=== PATIENT | female | born 1940 | race Caucasian/White ===

== ENCOUNTER → 2016-03-10 | Outpatient (CLI) | payer OTHER ==
[~2016-03-10] MED LIST: CALCTAB5 PO; LVTUNK; MULT-506 PO
[2016-03-10 12:51] LABS: CREATININE 0.87 mg/dl (0.60-1.20)
[2016-03-11 14:26] LABS: TOTAL PROTEIN 6.7 G/DL (6.2-8.3)
== END | disposition home or self-care (01) ==
LOC: C.LABBFT 08:16
PROVIDERS: ATTEND Internal Medicine
DX: M81.0 Age-related osteoporosis without current pathological fracture (principal)

== ENCOUNTER → 2016-04-09 | Outpatient (CLI) | payer OTHER ==
[2016-04-09 12:27] LABS: CALCIUM 9.4 mg/dl (8.5-10.1); CREATININE 0.82 mg/dl (0.60-1.20)
[2016-04-09 12:34] LABS: CALCIUM URINE 16.2 mg/dl
[2016-04-10 19:48] LABS: ALBUMIN 4.1 G/DL (3.8-4.8); TOTAL PROTEIN 6.9 G/DL (6.2-8.3)
== END | disposition home or self-care (01) ==
LOC: C.LAB1850 10:27
PROVIDERS: ATTEND Internal Medicine Rheumatology
DX: M81.0 Age-related osteoporosis without current pathological fracture (principal); E55.9 Vitamin D deficiency, unspecified; E61.8 Deficiency of other specified nutrient elements

== ENCOUNTER → 2016-10-23 | Outpatient (CLI) | payer OTHER ==
--- NOTE | 2016-10-23 13:57 | MAMMOGRAPHY REPORT ---
BILATERAL DIGITAL SCREENING MAMMOGRAM WITH CAD: 10/23/2016 CLINICAL HISTORY: Routine screening. Patient has no complaints. TECHNIQUE: Current study was also evaluated with a Computer Aided Detection (CAD) system. Bilateral CC and MLO views were obtained. COMPARISON: Comparison is made to exams dated: 10/23/2015 mammogram, 10/20/2014 mammogram, 10/19/2013 m ammogram, 10/14/2012 mammogram, 10/10/2011 mammogram, and 10/04/2010 mammogram - [facility] nter. BREAST COMPOSITION: There are scattered areas of fibroglandular density in both breasts. FINDINGS: No suspicious masses, calcifications, or areas of architectural distortion are noted in ei ther breast. There has been no significant interval change compared to prior exams. IMPRESSION: ACR BI-RADS CATEGORY 1: NEGATIVE There is no mammographic evidence of malignancy. A 1 year screening mammogram is recommended. The pa tient will receive written notification of the results. Approximately 10% of breast cancers are not detected with mammography. A negative mammographic report should not delay biopsy if a clinically suggestive mass is present. Lynsey Sorto M.D. /:10/23/2016 12:12:45 Airport Screener: Elisa ROBISON(Lesley)(Fabi)(ANA), [facility] letter sent: Normal 1/2 BI-RADS Code: ACR BI-RADS Category 1: Negative
== END | disposition home or self-care (01) ==
LOC: C.MAMM 09:49
PROVIDERS: ATTEND Internal Medicine
DX: Z12.31 Encounter for screening mammogram for malignant neoplasm of breast (principal)

== ENCOUNTER → 2017-02-25 | Outpatient (CLI) | payer OTHER ==
[~2017-02-25] MED LIST changes: +ALEN70TA4 PO; +CALC500C70 PO; +GLUC15009 PO; +IBUP200C80 PO; +LEVO100T7 PO; +LORA10CA10 PO
== END | disposition home or self-care (01) ==
LOC: C.PATHSPEC 16:29
PROVIDERS: ATTEND Dermatology
DX: L82.1 Other seborrheic keratosis (principal)

== ENCOUNTER → 2017-03-03 | Outpatient (CLI) | payer OTHER | END | disposition home or self-care (01) | LOC: C.LABBFT 10:08 | PROVIDERS: ATTEND Internal Medicine | DX: M81.0 Age-related osteoporosis without current pathological fracture (principal); E55.9 Vitamin D deficiency, unspecified; E03.9 Hypothyroidism, unspecified ==

== ENCOUNTER → 2017-10-14 | Day surgery (SDC) | payer OTHER ==
[2017-10-01 10:28] VITALS: Ht 154.9 cm; Wt 47.3 kg
[~2017-10-14] VITALS: Ht 154.9 cm; Wt 47.3 kg
[~2017-10-14] MED LIST changes: +500ML BSS 0.3ML EPI 1:1000PF IRRIG ONE; +ACETAMINOPHEN 325 MG TAB PO PRN; +AMVISC PLUS 0.8ML SYRINGE INT OCU ONE; +ATROPINE SULFATE 0.1 MG/ML 5ML SYR IV PRN; +BSS FLUSH ONE; -CALCTAB5 PO; +ENDOCOAT 0.85ML SYRINGE INT OCU ONE; +EpHEDrine SULFATE INJ 50 MG/ML AMP IV PRN; +EpINEphrine INJ 1MG/ML AMP 1 MG/ML AMP ONE; +LACTATED RINGER'S 1000ML 500 ML IV SCH; +LIDOCAINE 4% OP SOLN DROP CHARGE ONE; +LIDOCAINE 4% OP SOLN DROP CHARGE OPL SCH; +LIDOCAINE HCL 1% MPF 2 ML VIAL ONE; -LVTUNK; +MIDAZOLAM HCL 1 MG/ML 2ML VIAL ONE; +MIX: 4ML BSS 1ML EPI 1:1000 PF TOP ONE; +MOXIFLOXACIN OPH SOLN PER DROP CHARGE ONE; +POVIDONE-IODINE OP SOLN 30 ML BTL ONE; +PROPARACAINE 0.5% OP SOLN PER DROP CHARGE OPL SCH; +TOBRAMYCIN/DEXAMETHASONE OPH OINT PER APPLN CHARGE ONE
--- NOTE | 2017-10-14 10:15 | History & Physical Bridge - SC ---
H&P Re-Evaluation Bridge Note: I have examined the patient, reviewed the History & Physical and in the interval since the performance of the History & Physical I have noted the following changes of clinical significance: No changes noted
[2017-10-14] MEDS: PHENYLEPHRINE HCL 2.5% OP SOLN PER DROP CHARGE OPL SCH ×3 (10:21→10:31)
[2017-10-14] MEDS: TROPICAMIDE 1% OP SOLN PER DROP CHARGE OPL SCH ×3 (10:22→10:32)
[2017-10-14] MEDS: CYCLOPENTOLATE HCL 1% OP SOLN PER DROP CHARGE OPL SCH ×3 (10:23→10:33)
[2017-10-14] MEDS: MOXIFLOXACIN OPH SOLN PER DROP CHARGE OPL SCH ×3 (10:24→10:34)
--- NOTE | 2017-10-14 11:20 | [facility] Post Operative Brief Note ---
Immediate Operative Summary Operative Date Oct 14, 2017. Pre-Operative Diagnosis Left eye cataract Post-Operative Diagnosis same as preop Procedure(s) Performed Left Cataract Phacoemulsification With Intraocular Lens Implant Surgeon Dr. Khan Section Plotter Operator Surgeon(s) none Estimated Blood Loss 0ml Findings Consistent with Post-Op Diagnosis Specimens none per surgeon Anesthesia Type MAC Complication(s) none Disposition Accompanied Pt To Recover: no Disposition:
--- NOTE | 2017-10-14 11:21 | [facility] Operative Report ---
Operative Report Date of Service Oct 14, 2017. Operative Report DATE OF OPERATION: 10/14/17 PREOPERATIVE DIAGNOSIS: Senile nuclear cataract, left eye POSTOPERATIVE DIAGNOSIS: Senile nuclear cataract, left eye PROCEDURE PERFORMED: Phacoemulsification with intraocular lens implantation, left eye SURGEON: Dr. Pierre Khan ANESTHESIA: Topical with 1% intracameral lidocaine and monitored anesthesia care COMPLICATIONS: None DESCRIPTION OF PROCEDURE: After positively identifying the patient both verbally and by wristband in the preoperative area, the left eye was marked as the operative eye. The patient was then brought back to the operating room by the anesthesia and nursing staff where they were given a drop of Lidocaine and betadine into the operative eye. They were then sterilely prepped and draped in the standard fashion typical for ophthalmic surgery. Steri-strips were placed along the upper eyelids to keep the lashes back, and a lid speculum was placed into the operative eye. At this point, a documented time out was performed with members of the ophthalmology, nursing, and anesthesia staffs all agreeing upon the correct patient, correct location for surgery, correct procedure, and correct type and power of intraocular lens to be implanted. The microscope was then swung into position. First, a paracentesis wound was made using a sideport blade. Then, in sequence, 1% preservative-free lidocaine followed by Endocoat viscoelastic was injected into the anterior chamber. Next , the main incision was made with a keratome blade in triplanar fashion. A sharp cystotome was introduced into the eye and used to create a tear in the anterior capsule, which was directed into a continuous curvilinear capsulorrhexis using Utrata forceps. Hydrodissection was then performed with BSS on a flat-tip cannula. Next, the phacoemulsification handpiece was introduced into the eye and used to remove the nucleus in a [id number]-alh-acxs fashion. This was done without complication and then the irrigation-aspiration handpiece was introduced into the eye and used to remove all remaining cortical and epinuclear material. Amvisc was then injected into the anterior chamber as well as into the capsular bag and using the lens injector system, an MX60 24.5 D lens, serial number [id number], and expiration date 04/2020 was injected into the capsular bag and rotated into the correct position. Next, the irrigation- aspiration handpiece was used to remove all remaining Amvisc. BSS was used to hydrate the main wound, and then BSS was injected into the paracentesis site to reach physiologic pressure and then the main wound was checked and found to be watertight. The patient was given drops of Vigamox and Tobradex ointment into the operative eye, and then the surrounding area was cleaned and dried. A clear plastic shield was placed over the eye and the patient was then sat up and taken from the operating room by the anesthesia staff having tolerated the procedure well and suffering no complications. DISPOSITION: The patient was returned to the recovery room in stable condition. I attest to the content of the Intraoperative Record and any orders documented therein. Any exceptions are noted below.
--- NOTE | 2017-10-14 11:22 | Discharge Instructions-SurgCtr ---
Discharge Instructions Date of Service Oct 14, 2017. Visit Reason for Visit: Left Cataract Discharge Discharge Diagnosis / Problem: left cataract Discharge Goals Goal(s): Decrease discomfort, Improve function Activity Recommendations Activity Limitations: as noted below Anesthesia . Post Anesthesia Instructions: If you have had General Anesthesia or IV Sedation: * Do not drive today. * Resume driving when surgeon permits. * Do not make important decisions or sign legal documents today. * Call surgeon for: 1. Temperature elevations greater than 101 degrees F. 2. Uncontrollable pain. 3. Excessive bleeding. 4. Persistent nausea and vomiting. 5. Medication intolerance (nausea, vomiting or rash). * For nausea and vomiting use only clear liquids such as: tea, soda, bouillon until nausea subsides, then gradually increase diet as tolerated. * If you have any concerns or questions, call your surgeon's office. If physician is unavailable and it is an emergency, call 911 or go to the nearest emergency room. . Instructions / Follow-Up Instructions / Follow-Up ACTIVITY RECOMMENDATIONS: * Light activities. * You may walk outside, read, watch television. * You may notice redness on the white part of the eye and some blurry vision - this is normal. MEDICATIONS: Resume previous medications unless instructed otherwise by your surgeon. Start all eye drops at 1:30 pm today: * Eye drops (today): Prednisone - one drop in operative eye every 2 hours while awake Ofloxacin - one drop in operative eye every 2 hours while awake Ketorolac - one drop in operative eye daily SPECIAL CARE INSTRUCTIONS: * Tape plastic shield over eye to sleep at night. Call your doctor at with any concerns or problems. FOLLOW UP VISIT: Follow-up with Dr Khan at [place] office as scheduled. Diet Recommendations Home Diet: no limitations Procedures Procedures Performed: Left Cataract Phacoemulsification With Intraocular Lens Implant Pending Studies Studies pending at discharge: no Medical Emergencies . Who to Call and When: Medical Emergencies: If at any time you feel your situation is an emergency, please call 911 immediately. . Non-Emergent Contact Non-Emergency issues call your: Surgeon . . "Provider Documentation" section prepared by Pierre Khan. .
[2017-10-14 11:50] VITALS: BP 145/73; PULSE 74; O2SAT 100
--- NOTE | 2017-10-14 11:54 | Anesthesia Progress Nt - [facility] ---
Anesthesia Post Op Note Date & Time Oct 14, 2017 at 11:54 Vital Signs Pain Intensity: 0 Vital Signs Past 12 Hours Date Time Temp Pulse Resp B/P (MAP) Pulse Ox O2 Delivery O2 Flow Rate FiO2 10/14/17 11:50 74 16 145/73 (97) 100 Room Air 10/14/17 11:22 36.6 66 12 152/83 (106) 100 Room Air 10/14/17 10:07 36.6 72 16 153/79 (103) 100 Room Air Notes Mental Status: alert / awake / arousable, participated in evaluation Pt Amnestic to Procedure: Yes Nausea / Vomiting: adequately controlled Pain: adequately controlled Airway Patency, RR, SpO2: stable & adequate BP & HR: stable & adequate Hydration State: stable & adequate Anesthetic Complications: no major complications apparent
== END | disposition home or self-care (01) ==
LOC: X.SURG 09:45
PROVIDERS: ATTEND Ophthalmology
DX: H25.12 Age-related nuclear cataract, left eye (principal); Z91.012 Allergy to eggs; J45.909 Unspecified asthma, uncomplicated; Z79.899 Other long term (current) drug therapy

== ENCOUNTER 2019-08-10 12:31 | Observation (INO) ==
[2019-08-10 13:46] LABS: Basophils # (auto) 0.01 K/uL (0-0.2); Basophils % (auto) 0.1 %; Hematocrit (blood only) 39.9 % (37-47); Hemoglobin 12.9 g/dL (12.0-16.0); Immature Granulocytes # (auto) 0.01 K/uL (0.00-0.02); Immature Granulocytes % (auto) 0.1 %; Mean Corpuscular Hemoglobin 28.4 pg (25-34); Mean Corpuscular Hgb Conc 32.3 g/dL (32-36); Mean Corpuscular Volume 87.7 fL (80-100); Mean Platelet Volume 10.3 fL (7.4-10.4); Monocytes # (auto) 0.33 K/uL (0.11-0.59); Monocytes % (auto) 3.3 %; Neutrophils % (auto) 88.5 %; Platelet Count 268 K/uL (130-400); RDW Coefficient of Variation 13.7 % (11.5-14.5); Red Blood Count 4.55 M/uL (4.2-5.4); White Blood Count 10.05 K/uL (4.8-10.8)
[2019-08-10] MEDS ORDERED: SODIUM CHLORIDE 0.9% 1000ML 500 ML IV ONE (13:52)
[2019-08-10] MEDS ORDERED: ONDANSETRON INJ 2 MG/ML 2 ML VIAL IV STA (13:52)
[2019-08-10 13:55] LABS: Appearance Urine Cloudy (Clear); Bacteria Urine Automated Negative (Negative); Bilirubin Urine Negative (Negative); Blood Urine 3+ (Negative); Color Urine Yellow; Epithelial Cell Urine Auto >30 /lpf (0-5); Glucose Urine UA Negative (Negative); Ketones Urine 3+ (Negative); Leukocyte Esterase Urine Negative (Negative); Nitrite Urine Negative (Negative); Protein Urine 1+ (Negative); RBC Urine Automated >30 /hpf (0-4); Specific Gravity Urine 1.026 (1.000-1.030); Urobilinogen Urine Negative (Negative)
--- NOTE | 2019-08-10 13:57 | Emergency Department Note ---
Impression & Plan Acute left flank pain, Renal colic, Hematuria, Nausea ED Provider Note NAME: MITCHELL GILLILAND AGE: 79 SEX: F : 1940 ARRIVES VIA: Ambulance INFORMANT: [Patient] ED PROVIDER(S): [Julio C Hagan MD] CHIEF COMPLAINT: Left flank pain HISTORY OF PRESENT ILLNESS: The patient is a 79-year-old female who presents with around 12 hours of left flank discomfort. The pain was severe at a 7 or 8 but now is around a 2. She thinks taking 3 Motrin helped. Patient has had nausea with the pain. There has been no pain radiation. The pain was sharp and she just could not get comfortable until the Motrin seemed to kick in. Position change did not help. There have been no urinary complaints. No vomiting, no cough or congestion or shortness of breath. She has not had diarrhea. No history of a kidney stone. No fall or trauma or issues with her back previously. REVIEW OF SYSTEMS: See HPI for pertinent positives and negatives. A total of ten systems were reviewed and were otherwise negative. PMHx/PSHx: See Below SOCIAL HISTORY: See Below. PHYSICAL EXAM: GENERAL: Patient is in no acute distress. HEENT: No acute trauma, normocephalic atraumatic, mucous membranes moist, no nasal congestion, no scleral icterus. NECK: No stridor, no adenopathy, no meningismus, trachea is midline. LUNGS: Clear to auscultation bilaterally, no wheeze, no rhonchi, breath sounds equal. HEART: Without murmurs gallops or rubs, regular rate and rhythm. Back: No flank discomfort with percussion, no rash, no pain with palpation or certain movements. ABDOMEN: Soft, nontender, bowel sounds positive, no hernias, no peritonitis. EXTREMITIES: No cyanosis or edema, full range of motion of all the joints without pain or difficulty, no signs for acute trauma. NEUROLOGIC: Oriented x 3, no acute motor or sensory deficits, no focal weakness. SKIN: No rash, no jaundice, no diaphoresis. DIFFERENTIAL DIAGNOSIS: Musculoskeletal, disc herniation, fracture, metastatic disease, cord compression, discitis, sciatica, cauda equina, infection, aortic disease, renal colic, gastrointestinal, as well as other pathologies. EMERGENCY DEPARTMENT COURSE/PROCEDURES: Continuous Cardiac Monitoring: An order was placed for continuous cardiac monitoring. The monitor shows a rate of 56 with sinus bradycardia. MEDICAL DECISION MAKING: There is no leukocytosis or concerning anemia. No significant electrolyte abnormality or kidney failure. No worrisome liver enzyme elevation. No evidence for pancreatitis. Urinalysis did show hematuria, no evidence for infection. Chest film did not show any obvious pneumonia, there was no pneumothorax. No evidence for free air. Abdominal and pelvis CT shows a very large proximal left ureteral stone with hydronephrosis. The patient received IV saline, IV Zofran, IV Toradol and IV Tylenol. She still was having some pain, but the pain was improved with the listed medications. Given the size of the stone, given the patient's age, I do think a hospital stay is warranted. I suspect she will require some type of urologic intervention. I did speak to the patient, I spoke with case management. The on-call hospitalist was consulted. Past Med/Surg History Medical History Allergic rhinitis (Chronic) Depression with anxiety (Chronic) Hypertension (Chronic) Hypothyroidism (Chronic) Lichen sclerosus et atrophicus (Chronic) Osteoporosis (Chronic) Primary writing tremor (Chronic) Seborrheic keratosis (Chronic) Surgical History S/P colonoscopy S/P knee surgery S/P tubal ligation Family History Family/Other Anemia Heart disease Brother Asthma Hyperparathyroidism Grandmother (Maternal) Breast cancer Denies family history of Ovarian cancer Colorectal cancer Social History Preferred Language: Spanish Communication Ability: Effective Visual Impairment: No Limitations Hearing Ability: Normal Body Bumper Required: No marital status: Current Living Situation: Spouse current occupational status: retired Feels Safe at Home: Yes Smoking Status: Former smoker Hx Alcohol Use: No Hx Substance Use: No Physical Activity Frequency: Other Physical Activity Frequency Comment: Regularly Sexual Activity: has been sexually active, but not for at least 12 months Allergies Allergies Allergy/AdvReac Type Severity Reaction Status Date / Time egg Allergy Unknown . Verified 08/10/19 16:21 pollen extracts Allergy Verified 08/10/19 16:21 trazodone Allergy Verified 08/10/19 16:21 Home Meds Home Medications Medication Instructions Recorded Confirmed calcium carbonate [Calcium 600] 600 mg PO QAM 08/10/19 08/10/19 cholecalciferol (vitamin D3) 2,000 units PO QPM 08/10/19 08/10/19 denosumab [Prolia] 60 mg SQ Q6M 08/10/19 08/10/19 docusate sodium [Colace] 200 mg PO QPM 08/10/19 08/10/19 levothyroxine 100 mcg PO QAM 08/10/19 08/10/19 loratadine 10 mg PO QAM PRN 08/10/19 08/10/19 losartan 50 mg PO QAM 08/10/19 08/10/19 multivitamin 1 tab PO QAM 08/10/19 08/10/19 Results & Data (ED) Vital Signs Vital Signs - 24 hr 08/10/19 12:36 08/10/19 12:37 08/10/19 12:43 Temperature 37.0 C Temperature Source Oral Pulse Rate 77 67 57 L Pulse Rate from SpO2 Sensor 203 H 201 H Respiratory Rate 17 17 15 Blood Pressure 170/72 H 170/72 H Blood Pressure Mean 85 104 Pulse Oximetry 94 92 Oxygen Delivery Method Room Air Sepsis Recent Fever Within 48 Hours No Sepsis Action Taken by Nursing No Action Required 08/10/19 12:50 08/10/19 13:00 08/10/19 13:01 Temperature Temperature Source Pulse Rate 59 L 60 51 L Pulse Rate from SpO2 Sensor 173 H 101 H 181 H Respiratory Rate 11 L 16 14 Blood Pressure 132/66 Blood Pressure Mean 84 Pulse Oximetry Oxygen Delivery Method Sepsis Recent Fever Within 48 Hours Sepsis Action Taken by Nursing 08/10/19 13:10 08/10/19 13:20 08/10/19 13:30 Temperature Temperature Source Pulse Rate 52 L 52 L 65 Pulse Rate from SpO2 Sensor 184 H 176 H Respiratory Rate 15 17 16 Blood Pressure 153/55 H Blood Pressure Mean 98 Pulse Oximetry 94 Oxygen Delivery Method Sepsis Recent Fever Within 48 Hours Sepsis Action Taken by Nursing 08/10/19 13:31 08/10/19 13:40 08/10/19 13:41 Temperature Temperature Source Pulse Rate 57 L 50 L Pulse Rate from SpO2 Sensor 203 H 50 L Respiratory Rate 23 16 Blood Pressure Blood Pressure Mean Pulse Oximetry 98 94 Oxygen Delivery Method Room Air Sepsis Recent Fever Within 48 Hours Sepsis Action Taken by Nursing 08/10/19 13:50 08/10/19 14:00 08/10/19 14:01 Temperature Temperature Source Pulse Rate 63 50 L 53 L Pulse Rate from SpO2 Sensor Respiratory Rate 18 15 18 Blood Pressure 144/70 H Blood Pressure Mean 109 Pulse Oximetry Oxygen Delivery Method Sepsis Recent Fever Within 48 Hours Sepsis Action Taken by Nursing 08/10/19 14:10 08/10/19 14:32 08/10/19 14:40 Temperature Temperature Source Pulse Rate 64 60 55 L Pulse Rate from SpO2 Sensor 55 L Respiratory Rate 22 20 12 Blood Pressure Blood Pressure Mean Pulse Oximetry 97 Oxygen Delivery Method Sepsis Recent Fever Within 48 Hours Sepsis Action Taken by Nursing 08/10/19 14:50 08/10/19 15:00 08/10/19 15:01 Temperature Temperature Source Pulse Rate 76 66 54 L Pulse Rate from SpO2 Sensor 202 H Respiratory Rate 17 14 12 Blood Pressure 147/64 H Blood Pressure Mean 84 Pulse Oximetry 90 Oxygen Delivery Method Sepsis Recent Fever Within 48 Hours Sepsis Action Taken by Nursing 08/10/19 15:10 08/10/19 15:20 08/10/19 15:30 Temperature Temperature Source Pulse Rate 54 L 56 L 64 Pulse Rate from SpO2 Sensor 186 H 187 H Respiratory Rate 12 13 21 Blood Pressure 127/85 Blood Pressure Mean 89 Pulse Oximetry Oxygen Delivery Method Sepsis Recent Fever Within 48 Hours Sepsis Action Taken by Nursing 08/10/19 15:40 08/10/19 15:50 08/10/19 16:00 Temperature Temperature Source Pulse Rate 56 L 53 L 56 L Pulse Rate from SpO2 Sensor Respiratory Rate 14 12 14 Blood Pressure 147/65 H Blood Pressure Mean 114 Pulse Oximetry 94 Oxygen Delivery Method Room Air Sepsis Recent Fever Within 48 Hours Sepsis Action Taken by Nursing 08/10/19 16:01 08/10/19 16:10 08/10/19 16:20 Temperature Temperature Source Pulse Rate 52 L 53 L 59 L Pulse Rate from SpO2 Sensor Respiratory Rate 14 14 15 Blood Pressure Blood Pressure Mean Pulse Oximetry Oxygen Delivery Method Sepsis Recent Fever Within 48 Hours Sepsis Action Taken by Nursing 08/10/19 16:30 08/10/19 16:40 08/10/19 16:50 Temperature Temperature Source Pulse Rate 60 64 48 L Pulse Rate from SpO2 Sensor Respiratory Rate 16 20 12 Blood Pressure 129/70 Blood Pressure Mean 88 Pulse Oximetry Oxygen Delivery Method Sepsis Recent Fever Within 48 Hours Sepsis Action Taken by [facility] Medications Current Medication List: was personally reviewed by me Laboratory Data Attestation: I reviewed the patient's lab results. Result diagrams: 08/10/19 13:35 08/10/19 13:35 Lab Results 08/10/19 08/10/19 08/10/19 Range/Units 13:35 13:35 13:35 WBC 10.05 (4.8-10.8) K/uL RBC 4.55 (4.2-5.4) M/uL Hgb 12.9 (12.0-16.0) g/dL Hct 39.9 (37-47) % MCV 87.7 (80-100) fL MCH 28.4 (25-34) pg MCHC 32.3 (32-36) g/dL RDW Std Deviation 44.0 (36.4-46.3) fL RDW Coeff of [place] 13.7 (11.5-14.5) % Plt Count 268 (130-400) K/uL MPV 10.3 (7.4-10.4) fL Immature Gran % (Auto) 0.1 % Neut % (Auto) 88.5 % Lymph % (Auto) 8.0 % [place] % (Auto) 3.3 % Eos % (Auto) 0.0 % Baso % (Auto) 0.1 % Immature Gran # (Auto) 0.01 (0.00-0.02) K/uL Neut # (Auto) 8.90 H (1.4-6.5) K/uL Lymph # (Auto) 0.80 L (1.2-3.4) K/uL [place] # (Auto) 0.33 (0.11-0.59) K/uL Eos # (Auto) 0.00 (0-0.5) K/uL Baso # (Auto) 0.01 (0-0.2) K/uL Sodium 140 (136-145) mmol/L Potassium 4.2 (3.5-5.1) mmol/L Chloride 107 (98-107) mmol/L Carbon Dioxide 25 (21-32) mmol/L Anion Gap 8.0 (3-11) BUN 30 H (7-18) mg/dl Creatinine 1.04 (0.6-1.2) mg/dl Est Cr Clr Drug Dosing 34.2 ml/min Est GFR ( Amer) 60.0 Est GFR (Non-Af Amer) 51.8 BUN/Creatinine Ratio 29.2 H (10-20) Glucose 116 H (70-99) mg/dl Calcium 9.0 (8.5-10.1) mg/dl Total Bilirubin 0.4 (0.2-1) mg/dl AST 16 (15-37) U/L ALT 23 (12-78) U/L Alkaline Phosphatase 43 L (45-117) U/L Total Protein 7.6 (6.4-8.2) gm/dl Albumin 4.1 (3.4-5.0) gm/dl Globulin 3.5 (2.5-4.0) gm/dl Albumin/Globulin Ratio 1.2 (0.9-2) Lipase 70 L (73-393) U/L Urine Color Yellow Urine Appearance Cloudy A (Clear) Urine pH 5.0 (4.5-7.5) Ur Specific [place] 1.026 (1.000-1.030) Urine Protein 1+ H (Negative) Urine Glucose (UA) Negative (Negative) Urine Ketones 3+ H (Negative) Urine Blood 3+ H (Negative) Urine Nitrite Negative (Negative) Urine Bilirubin Negative (Negative) Urine Urobilinogen Negative (Negative) Ur Leukocyte Esterase Negative (Negative) Urine WBC (Auto) 5-10 H (0-5) /hpf Urine RBC (Auto) >30 H (0-4) /hpf U Hyaline Cast (Auto) 1-5 (0-5) /lpf U Epithel Cells (Auto) >30 H (0-5) /lpf Urine Bacteria (Auto) Negative (Negative) Administered Medications Discontinued Medications Acetaminophen (Ofirmev) 1,000 mg IV ONCE STA Stop: 08/10/19 15:14 Last Admin: 08/10/19 15:30 Dose: 1,000 mg Documented by: [id number] Sodium Chloride (Nss 1000ml) 500 mls @ 999 mls/hr IV .Q31M ONE Stop: 08/10/19 14:22 Last Infusion: 08/10/19 14:51 Dose: 0 mls/hr Documented by: [id number] Admin: 08/10/19 14:00 Dose: 999 mls/hr Documented by: [id number] Ketorolac Tromethamine (Toradol) 15 mg IV NOW ONE Stop: 08/10/19 15:14 Last Admin: 08/10/19 15:30 Dose: 15 mg Documented by: [id number] Morphine Sulfate (Morphine Sulfate) Confirm Administered Dose 2 mg .ROUTE .STK- MED ONE Stop: 08/10/19 19:13 Last Admin: 08/10/19 19:15 Dose: 2 mg Documented by: [id number] Ondansetron HCl (Zofran) 4 mg IV NOW STA Stop: 08/10/19 13:53 Last Admin: 08/10/19 14:00 Dose: 4 mg Documented by: [id number] Ondansetron HCl (Zofran) Confirm Administered Dose 4 mg .ROUTE .STK-MED ONE Stop: 08/10/19 19:13 Last Admin: 08/10/19 19:15 Dose: 4 mg Documented by: [id number] Imaging Data Radiologist's Impression: XR chest 1V portable CLINICAL HISTORY: left flank pain COMPARISON STUDY: No previous studies for comparison. FINDINGS: The heart is mildly enlarged. There is no failure. There is no lobar consolidation. There are increased basilar markings statistically atelectatic. No large pleural effusions are visualized[ IMPRESSION: 1. Mild cardiomegaly 2. Prominent basilar markings, statistically atelectatic CT SCAN OF THE ABDOMEN AND PELVIS WITHOUT CONTRAST CLINICAL HISTORY: left flank pain COMPARISON STUDY: No previous studies for comparison. TECHNIQUE: CT scan of the abdomen and pelvis was performed from the lung bases to the proximal femurs. Images are reviewed in the axial, sagittal, and coronal planes. IV contrast was not administered for this examination. A dose lowering technique was utilized adhering to the principles of ALARA. CT DOSE: 384.94 mGycm FINDINGS: Lower chest: There are mild basilar atelectatic changes. Liver: The unenhanced liver is normal in size, contour, and attenuation. There is no intrahepatic biliary ductal dilatation. Gallbladder: Unremarkable. Spleen: Normal in size and attenuation. Pancreas: Unremarkable. Adrenal glands: Unremarkable. Kidneys: There are multiple bilateral renal calculi. There is a 15 mm right renal hypodensity, likely representing a cyst. There is mild left-sided hydronephrosis and hydroureter. There is a 10 x 5 x 4 proximal left ureteral calculus at the inferior L4 level. Bowel: There are no transition zones indicate bowel obstruction. There is extensive colonic diverticulosis. There are no acute peridiverticular inflammatory changes. There are no findings to indicate acute appendicitis. Peritoneum: There is no intraperitoneal free air or abdominal ascites. There are small fat-containing umbilical hernia. There is a 1 cm soft tissue nodule within the central mesentery. This is of quite low density and likely represents a cyst or fat-containing lesion. This is likely benign Vasculature: The abdominal aorta is normal in course and caliber. Adenopathy: None. Pelvic viscera: There is a 4 cm calcified uterine fibroid. There are calcifications in the left posterior bladder base. While likely representing calculi, a calcified bladder lesion cannot be excluded Skeletal structures: No destructive osseous lesions are seen. IMPRESSION: 1. 10 x 5 x 4 mm proximal left ureteral calculus at the inferior L4 level with secondary obstructive changes 2. Bilateral nephrolithiasis 3. Calcifications at the left posterior bladder base. While likely representing calculi, a calcified bladder lesion cannot be excluded 4. No evidence of bowel obstruction. No evidence of free air. Blood Pressure Blood Pressure Findings: Elevated blood pressure Blood Pressure Disposition: further management by hospitalist Discharge Plan Visit Data *Final* Discharge Date/Time: 08/10/19 17:22 Chief Complaint: Back Injury/Pain ED Provider: Julio C Hagan Discharge Problem: Acute left flank pain, Renal colic, Hematuria, Nausea Patient Disposition: Admitted As Inpatient Condition: Good Discharge Instructions Interventions: ED Discharge Assessment Last Done: 08/10/19 17:22 Discharge Problem: Hematuria Qualifiers: Hematuria type: other microscopic Qualified Code(s): R31.29 - Other microscopic hematuria
[2019-08-10 14:03] LABS: Albumin Level 4.1 gm/dl (3.4-5.0); BUN Creatinine Ratio 29.2 (10-20); Creatinine Clr Calc Pharmacy 34.2 ml/min; Est GFR (Non-African American) 51.8; Potassium 4.2 mmol/L (3.5-5.1)
[2019-08-10 14:06] LABS: Albumin Globulin Ratio 1.2 (0.9-2); Bilirubin,Total 0.4 mg/dl (0.2-1); Globulin 3.5 gm/dl (2.5-4.0); Total Protein 7.6 gm/dl (6.4-8.2)
--- NOTE | 2019-08-10 14:16 | XRay Report ---
XR chest 1V portable CLINICAL HISTORY: left flank pain COMPARISON STUDY: No previous studies for comparison. FINDINGS: The heart is mildly enlarged. There is no failure. There is no lobar consolidation. There a re increased basilar markings statistically atelectatic. No large pleural effusions are visualized[ IMPRESSION: 1. Mild cardiomegaly 2. Prominent basilar markings, statistically atelectatic ACT 112: Negative or not required by law. Electronically signed by: Palmer Caban M.D. 08/10/2019 2:15 PM
--- NOTE | 2019-08-10 14:52 | CT Scan Report ---
CT SCAN OF THE ABDOMEN AND PELVIS WITHOUT CONTRAST CLINICAL HISTORY: left flank pain COMPARISON STUDY: No previous studies for comparison. TECHNIQUE: CT scan of the abdomen and pelvis was performed from the lung bases to the proximal femurs . Images are reviewed in the axial, sagittal, and coronal planes. IV contrast was not administered fo r this examination. A dose lowering technique was utilized adhering to the principles of ALARA. CT DOSE: 384.94 mGycm FINDINGS: Lower chest: There are mild basilar atelectatic changes. Liver: The unenhanced liver is normal in size, contour, and attenuation. There is no intrahepatic kulwinder iary ductal dilatation. Gallbladder: Unremarkable. Spleen: Normal in size and attenuation. Pancreas: Unremarkable. Adrenal glands: Unremarkable. Kidneys: There are multiple bilateral renal calculi. There is a 15 mm right renal hypodensity, likely representing a cyst. There is mild left-sided hydronephrosis and hydroureter. There is a 10 x 5 x 4 proximal left ureteral calculus at the inferior L4 level. Bowel: There are no transition zones indicate bowel obstruction. There is extensive colonic diverticu losis. There are no acute peridiverticular inflammatory changes. There are no findings to indicate ac nenana appendicitis. Peritoneum: There is no intraperitoneal free air or abdominal ascites. There are small fat-containing umbilical hernia. There is a 1 cm soft tissue nodule within the central mesentery. This is of quite low density and likely represents a cyst or fat-containing lesion. This is likely benign Vasculature: The abdominal aorta is normal in course and caliber. Adenopathy: None. Pelvic viscera: There is a 4 cm calcified uterine fibroid. There are calcifications in the left poste rior bladder base. While likely representing calculi, a calcified bladder lesion cannot be excluded Skeletal structures: No destructive osseous lesions are seen. IMPRESSION: 1. 10 x 5 x 4 mm proximal left ureteral calculus at the inferior L4 level with secondary obstructive changes 2. Bilateral nephrolithiasis 3. Calcifications at the left posterior bladder base. While likely representing calculi, a calcified bladder lesion cannot be excluded 4. No evidence of bowel obstruction. No evidence of free air. ACT 112: Negative or not required by law. Electronically signed by: Palmer Caban M.D. 08/10/2019 2:51 PM
[2019-08-10] MEDS ORDERED: KETOROLAC TROMETHAMINE 15 MG/ML VIAL IV ONE (15:13)
[2019-08-10] MEDS ORDERED: ACETAMINOPHEN 1000 MG/100 ML IV IV STA (15:13)
--- NOTE | 2019-08-10 17:01 | History & Physical Report ---
Date of Service August 10, 2019 Assessment & Plan (1) Ureteral calculus: Admit med surg CT showing proximal left ureteral calculus with mild hydronephrosis, hydroureter measuring 10x5x4 Consulted and spoke with Dr. Chambers from urology - npo after midnight, KUB, cipro U/A without nitrates or bacteria, does have epithelial cells and RBCs - will culture NSS @ 80 mls/hr (2) Hypertension: continue home losartan (3) Osteoporosis: Takes Prolia q6mo. (4) Hypothyroidism: Continue home levothyroxine (5) DVT prophylaxis: SCDs, hold chemoprophylaxis for likely intervention tomorrow History of Present Illness Ms. Carmona presents today for flank pain on the left starting at 0300 this am. It was relieved with three ibuprofen. She denies any other urinary symptoms such as dysuria or hesitancy. No aches, chills or fevers. CT in the ED showed a large ureteral calculus with mild hydronephrosis. She has no history of ureteral calculus. At the time of my assessment she was feeling much better, some mild nausea but little pain. She denies any vomiting or diarrhea. No sob, cough, chest pain, palpitations or skin changes. Pmhx: htn, osteoporosis, hypothyroid Social: lives with who has dementia, she is a retired [employer] WORK[employer], never smoker, no alcohol Primary Care Provider: Desire Perea MD Allergies Allergy/AdvReac Type Severity Reaction Status Date / Time egg Allergy Unknown . Verified 08/10/19 16:21 pollen extracts Allergy Verified 08/10/19 16:21 trazodone Allergy Verified 08/10/19 16:21 Home Medications Home Medications Medication Instructions Recorded Confirmed Type calcium carbonate [Calcium 600] 600 mg PO QAM 08/10/19 08/10/19 History cholecalciferol (vitamin D3) 2,000 units PO QPM 08/10/19 08/10/19 History denosumab [Prolia] 60 mg SQ Q6M 08/10/19 08/10/19 History docusate sodium [Colace] 200 mg PO QPM 08/10/19 08/10/19 History levothyroxine 100 mcg PO QAM 08/10/19 08/10/19 History loratadine 10 mg PO QAM PRN 08/10/19 08/10/19 History losartan 50 mg PO QAM 08/10/19 08/10/19 History multivitamin 1 tab PO QAM 08/10/19 08/10/19 History Past Med/Surg History Medical History (Updated 08/10/19 @ 17:07 by MILEY Brian) Allergic rhinitis (Chronic) Depression with anxiety (Chronic) Hypertension (Chronic) Hypothyroidism (Chronic) Lichen sclerosus et atrophicus (Chronic) Osteoporosis (Chronic) Primary writing tremor (Chronic) Seborrheic keratosis (Chronic) Surgical History (Updated 11/29/18 @ 11:59 by No Latham) S/P colonoscopy S/P knee surgery S/P tubal ligation Family History (Updated 11/29/18 @ 12:01 by No Latham) Family/Other Anemia Heart disease Brother Asthma Hyperparathyroidism Grandmother (Maternal) Breast cancer Denies family history of Ovarian cancer Colorectal cancer Social History (Updated 11/29/18 @ 12:02 by No Latham) Preferred Language: Polish Communication Ability: Effective Visual Impairment: No Limitations Hearing Ability: Normal Relay Tester Required: No marital status: Current Living Situation: Spouse current occupational status: retired Feels Safe at Home: Yes Smoking Status: Former smoker Hx Alcohol Use: No Hx Substance Use: No Physical Activity Frequency: Other Physical Activity Frequency Comment: Regularly Sexual Activity: has been sexually active, but not for at least 12 months Physical Exam Physical Exam: General: no distress Eyes: normal inspection, PERLL Respiratory: chest non tender, clear to auscultation, normal breath sounds, no respiratory distress, no accessory muscle use Cardiac: regular rate and rhythm, no rub or gallop, no murmur, no edema, no jvd GI/: active bowel sounds, no abd pain or tenderness, soft, non distended Extremities: normal range of motion, normal strength, non tender Neuro/Psych: alert and oriented x 3, normal mood and affect Skin: normal color, dry Results & Data Results & Data ([facility]) Vital Signs (Past 12 Hours) Vital Signs Temp Pulse Resp BP Pulse Ox 08/10/19 16:20 59 L 15 08/10/19 16:10 53 L 14 08/10/19 16:01 52 L 14 08/10/19 16:00 56 L 14 147/65 H 94 08/10/19 15:50 53 L 12 08/10/19 15:40 56 L 14 08/10/19 15:30 64 21 127/85 08/10/19 15:20 56 L 13 08/10/19 15:10 54 L 12 08/10/19 15:01 54 L 12 147/64 H 90 08/10/19 15:00 66 14 08/10/19 14:50 76 17 08/10/19 14:40 55 L 12 97 08/10/19 14:32 60 20 08/10/19 14:10 64 22 08/10/19 14:01 53 L 18 144/70 H 08/10/19 14:00 50 L 15 08/10/19 13:50 63 18 08/10/19 13:41 94 08/10/19 13:40 50 L 16 98 08/10/19 13:31 57 L 23 08/10/19 13:30 65 16 153/55 H 94 08/10/19 13:20 52 L 17 08/10/19 13:10 52 L 15 08/10/19 13:01 51 L 14 08/10/19 13:00 60 16 132/66 08/10/19 12:50 59 L 11 L 08/10/19 12:43 57 L 15 08/10/19 12:37 37.0 C 67 17 170/72 H 92 08/10/19 12:36 77 17 170/72 H 94 Code Status & VTE Plan Code Status Ms. Carmona would like CPR, compressions, medications but no intubation and ONLY if an arrest is witnessed Supervising Physician Co-Signing Physician Notes I supervised Scarlet Etienne NP on this patient's care. I examined the patient today independently of her. I discussed the plan of care with her with the plan being as written in her note except for any following changes/exceptions: None. Patient in no distress presently with pain medication provided in the ED. Ms. Etienne discussed with Dr. Chambers who will see her in the morning and consider procedure at that time. PG Care Time/CCT Total # of Minutes Spent Total Time Spent with Patient: Total time spent is greater than 50% in coordination of care (as documented) at patient's floor/unit and/or counseling patient: Coding Level of Care Code 72354 Initial Inpt Care Lvl 3 Diagnoses Ureteral calculus N20.1 Hypertension I10 Osteoporosis M81.0 Hypothyroidism E03.9 DVT prophylaxis Z29.9
[2019-08-10] MEDS ORDERED: MoRPHine SULFATE 2 MG/ML CARP IV PRN (18:56)
[2019-08-10] MEDS ORDERED: ACETAMINOPHEN 325 MG TAB PO PRN (18:56)
[2019-08-10] MEDS ORDERED: LORATADINE 10 MG TAB PO PRN (18:56)
[2019-08-10] MEDS ORDERED: ONDANSETRON INJ 2 MG/ML 2 ML VIAL ONE (19:12)
[2019-08-10] MEDS ORDERED: MoRPHine SULFATE 2 MG/ML CARP ONE (19:12)
--- NOTE | 2019-08-10 20:09 | XRay Report ---
XR KUB/Abdomen 1 view CLINICAL HISTORY: kidney stone COMPARISON STUDY: CT scan dated 08/10/2019 FINDINGS: There is no pathologic bowel dilatation. There is left-sided nephrolithiasis. The patient's known right renal calculi are difficult to visualize. There is a calcified uterine fibroid. There is a 10 x 3 mm left pelvic basin calcification which potentially could represent distal migration of th e previously described ureteral calculus. IMPRESSION: 1. Nonobstructive bowel gas pattern 2. Left-sided nephrolithiasis 3. Calcified uterine fibroid 4. 10 x 3 mm left pelvic basin calcification which potentially could represent distal migration of th e previously described ureteral calculus ACT 112: Negative or not required by law. Electronically signed by: Palmer Caban M.D. 08/10/2019 8:07 PM
[2019-08-10] MEDS: SODIUM CHLORIDE 0.9% 1000ML 1,000 ML IV SCH (20:38)
[2019-08-10] MEDS: CHOLECALCIFEROL 1,000 UNITS 25 MCG TAB PO SCH (21:26)
[2019-08-10] MEDS: DOCUSATE SODIUM 100 MG CAP PO SCH (21:27)
[2019-08-10] MEDS ORDERED: Nursing to Pharmacy Communication SCH (21:45)
[2019-08-10] MEDS: CIPROFLOXACIN / D5W 400 MG/200 ML BAG IV SCH (22:20)
[2019-08-11] MEDS: LEVOTHYROXINE SODIUM 100 MCG TABLET PO SCH (04:40)
[2019-08-11] MEDS: ONDANSETRON INJ 2 MG/ML 2 ML VIAL IV PRN ×2 (06:38→16:44)
[2019-08-11 06:42] LABS: Basophils # (auto) 0.02 K/uL (0-0.2); Basophils % (auto) 0.2 %; Eosinophils # (auto) 0.07 K/uL (0-0.5); Eosinophils % (auto) 0.8 %; Hematocrit (blood only) 36.6 % (37-47); Immature Granulocytes # (auto) 0.02 K/uL (0.00-0.02); Immature Granulocytes % (auto) 0.2 %; Lymphocytes # (auto) 2.13 K/uL (1.2-3.4); Lymphocytes % (auto) 23.7 %; Mean Corpuscular Hgb Conc 30.1 g/dL (32-36); Mean Corpuscular Volume 89.9 fL (80-100); Mean Platelet Volume 10.5 fL (7.4-10.4); Monocytes # (auto) 0.89 K/uL (0.11-0.59); Monocytes % (auto) 9.9 %; Neutrophils # (auto) 5.85 K/uL (1.4-6.5); Neutrophils % (auto) 65.2 %; Platelet Count 240 K/uL (130-400); RDW Standard Deviation 46.1 fL (36.4-46.3); Red Blood Count 4.07 M/uL (4.2-5.4); White Blood Count 8.98 K/uL (4.8-10.8)
[2019-08-11 07:16] LABS: BUN Creatinine Ratio 24.9 (10-20); Calcium 8.3 mg/dl (8.5-10.1); Creatinine Clr Calc Pharmacy 38.2 ml/min; Est GFR (African American) 68.7; Est GFR (Non-African American) 59.3; Potassium 3.8 mmol/L (3.5-5.1)
[2019-08-11] MEDS: CALCIUM CARBONATE 1250MG TAB PO SCH (08:25)
[2019-08-11] MEDS: MULTIVITAMIN TAB PO SCH (08:25)
[2019-08-11] MEDS: SODIUM CHLORIDE 0.9% 1000ML 1,000 ML IV SCH ×2 (08:32→21:22)
--- NOTE | 2019-08-11 10:18 | Urology Consultation ---
Date of Consultation August 11, 2019 Assessment & Plan (1) Ureteral calculus: Left ureteral calculus Discussed the findings and options with the patient We will plan to move forward with a cystoscopy, left ureteroscopy, laser lithotripsy and stent placement Possible DC home after surgery if progressing appropriatelywe will defer that decision to the primary team Consent is on the chart History of Present Illness Attending Physician: Juan aCrlos Zhang MD History of Present Illness 79-year-old female presenting to the emergency room secondary to severe left flank pain and nauseasudden onset of symptoms No prior kidney stone history CT revealed several stones within the left kidney as well as a left ureteral stone and a moderate hydronephrosis Subjectively improved this morning secondary to pain medications but still nauseated and still with pain KUB shows some distal migration of the stone Allergies Allergy/AdvReac Type Severity Reaction Status Date / Time egg Allergy Unknown . Verified 08/10/19 16:21 pollen extracts Allergy Verified 08/10/19 16:21 trazodone Allergy Verified 08/10/19 16:21 Home Medications Home Medications Medication Instructions Recorded Confirmed Type calcium carbonate [Calcium 600] 600 mg PO QAM 08/10/19 08/10/19 History cholecalciferol (vitamin D3) 2,000 units PO QPM 08/10/19 08/10/19 History denosumab [Prolia] 60 mg SQ Q6M 08/10/19 08/10/19 History docusate sodium [Colace] 200 mg PO QPM 08/10/19 08/10/19 History levothyroxine 100 mcg PO QAM 08/10/19 08/10/19 History loratadine 10 mg PO QAM PRN 08/10/19 08/10/19 History losartan 50 mg PO QAM 08/10/19 08/10/19 History multivitamin 1 tab PO QAM 08/10/19 08/10/19 History Patient History Medical History Allergic rhinitis (Chronic) Depression with anxiety (Chronic) Hypertension (Chronic) Hypothyroidism (Chronic) Lichen sclerosus et atrophicus (Chronic) Osteoporosis (Chronic) Primary writing tremor (Chronic) Seborrheic keratosis (Chronic) Surgical History S/P colonoscopy S/P knee surgery S/P tubal ligation Family History Family/Other Anemia Heart disease Brother Asthma Hyperparathyroidism Grandmother (Maternal) Breast cancer Denies family history of Ovarian cancer Colorectal cancer Social History Preferred Language: Kazakh Communication Ability: Effective Visual Impairment: No Limitations Hearing Ability: Normal Configuration Management Manager Required: No Beliefs That Will Affect Care: None marital status: Current Living Situation: Spouse Current Living Situation Comment: current caregiver of who has dementia current occupational status: retired Other Information That Helps Us Care for You: No Feels Safe at Home: Yes Safety Concerns: Feels Safe At This Time Smoking Status: Never smoker Hx Alcohol Use: No Hx Substance Use: No Physical Activity Frequency: Other Physical Activity Frequency Comment: Regularly Sexual Activity: has been sexually active, but not for at least 12 months Review of Systems Constitutional: no fever, no chills and no fatigue Eyes: no worsening vision Ear, Nose, Mouth, Throat: no facial pain and no pain with swallowing Respiratory: no cough and no dyspnea Cardiovascular: no chest pain and no palpitations Gastrointestinal: + abdominal pain and + nausea; no vomiting Genitourinary: + problem reported; no dysuria, no difficulty urinating, no urinary frequency and no hematuria Musculoskeletal: no back pain Integumentary: no rash and no urticaria Neurologic: + tremor(s); no gait abnormality and no unsteadiness Psychiatric: no behavioral changes and no depression Endocrine: no fatigue Physical Exam Physical Exam: Mild left-sided tenderness Constitutional: well developed and well nourished Neck: neck nontender Respiratory: normal respiratory effort; no respiratory distress and does not use accessory muscles Cardiovascular: Rate/Rhythm: regular rate Vessels: radial pulses present Extremities: no edema Gastrointestinal (Abdomen): Inspection/Auscultation: abdomen normal to inspection Percussion/Palpation: abdomen soft; abdomen nontender and no guarding Musculoskeletal: Head/Neck/Chest: normocephalic and head atraumatic Extremities: extremities normal to inspection Skin: no rashes and no lesions Trauma: no evidence of skin trauma Neurologic: awake; not obtunded Speech / Cognition: normal speech Motor/Sensory: no tremor Psychiatric: Orientation: alert and oriented x 3 Lymphatic: no lymphadenopathy Results & Data Vital Signs (Past 12 Hours) Vital Signs Temp Pulse Resp BP Pulse Ox 08/11/19 07:13 37.3 C 49 L 15 115/61 96 08/10/19 23:15 36.7 C 54 L 16 127/70 95 PG Care Time/CCT Total # of Minutes Spent Total Time Spent with Patient: Total time spent is greater than 50% in coordination of care (as documented) at patient's floor/unit and/or counseling patient: Coding Level of Care Code 88427 Inpt Consult Level 4 Diagnoses Ureteral calculus N20.1
[2019-08-11] MEDS: CIPROFLOXACIN / D5W 400 MG/200 ML BAG IV SCH ×2 (11:15→21:18)
[2019-08-11] MEDS: LOSARTAN POTASSIUM 50 MG TAB PO SCH (11:15)
[2019-08-11] MEDS ORDERED: fentaNYL citrate 100 MCG/2 ML VIAL ONE (12:51)
--- NOTE | 2019-08-11 13:38 | Anesthesiology Consultation ---
Date of Service August 11, 2019 Assessment & Plan ASA ASA3 Proposed Anesthesia Anesthesia Type: General Risk / Benefits Reviewed With: PT / POA / Parent / Guardian, Accepts Plan and Informed Consent Obtained History Surgery Operation Date: 08/11/19 11:20 Proposed Procedures p Cystoscopy, Left Ureteroscopy, Laser Lithotripsy with Stent Placement - Sterling Neves MD Height/Weight Height: 5 ft 1 in Weight: 49 kg Allergies Allergy/AdvReac Type Severity Reaction Status Date / Time egg Allergy Unknown . Verified 08/10/19 16:21 pollen extracts Allergy Verified 08/10/19 16:21 trazodone Allergy Verified 08/10/19 16:21 Medications Home Medications Medication Instructions Recorded Confirmed Last Taken calcium carbonate [Calcium 600] 600 mg PO QAM 08/10/19 08/10/19 Unknown cholecalciferol (vitamin D3) 2,000 units PO QPM 08/10/19 08/10/19 Unknown denosumab [Prolia] 60 mg SQ Q6M 08/10/19 08/10/19 03/16/19 docusate sodium [Colace] 200 mg PO QPM 08/10/19 08/10/19 Unknown levothyroxine 100 mcg PO QAM 08/10/19 08/10/19 Unknown loratadine 10 mg PO QAM PRN 08/10/19 08/10/19 Unknown losartan 50 mg PO QAM 08/10/19 08/10/19 Unknown multivitamin 1 tab PO QAM 08/10/19 08/10/19 Unknown Active Medications Generic Name Dose Route Start Last Admin Trade Name Freq PRN Reason Stop Dose Admin Calcium Carbonate 1,250 mg 08/11/19 09:00 08/11/19 08:25 Os-Gianluca 500 PO 09/10/19 08:59 Not Given QAM VLADIMIR Docusate Sodium 200 mg 08/10/19 21:00 08/10/19 21:27 Colace PO 09/09/19 20:59 200 mg QPM VLADIMIR Administration Ciprofloxacin 400 mg in 200 mls @ 100 mls/hr 08/10/19 20:00 08/11/19 13:12 Cipro IV 08/12/19 19:59 Infused Q12H VLADIMIR Infusion Protocol Sodium Chloride 1,000 mls @ 80 mls/hr 08/10/19 18:56 08/11/19 13:12 Nss 1000ml IV 09/09/19 18:55 0 mls/hr .[id number] VLADIMIR Infusion Levothyroxine Sodium 100 mcg 08/11/19 06:30 08/11/19 04:40 Synthroid PO 09/10/19 06:29 Not Given DAILYBB VLADIMIR Losartan Potassium 50 mg 08/11/19 09:00 08/11/19 11:15 Cozaar PO 09/10/19 08:59 Not Given QAM VLADIMIR Morphine Sulfate 2 mg 08/10/19 18:56 08/11/19 06:39 Morphine Sulfate IV 08/24/19 18:55 2 mg Q4H PRN Administration Pain Multivitamins 1 tab 08/11/19 09:00 08/11/19 08:25 Multivitamin Tab PO 09/10/19 08:59 Not Given QAM VLADIMIR Ondansetron HCl 4 mg 08/10/19 19:07 08/11/19 06:38 Zofran IV 09/09/19 19:06 4 mg Q4H PRN Administration Nausea Vitamin D 2,000 units 08/10/19 21:00 08/10/19 21:26 Vitamin D3 PO 09/09/19 20:59 2,000 units QPM VLADIMIR Administration NPO Date Last Intake of Fluids: 08/10/19 Time Last Intake of Fluids: 21:00 Date Last Intake of Solids: 08/10/19 Time Last Intake of Solids: 21:00 Past Medical History Medical History Allergic rhinitis (Chronic) Depression with anxiety (Chronic) Hypertension (Chronic) Hypothyroidism (Chronic) Lichen sclerosus et atrophicus (Chronic) Osteoporosis (Chronic) Primary writing tremor (Chronic) Seborrheic keratosis (Chronic) Exercise / Class Metabolic Activity II 4-5 Yardwork/Stairs/Walk up hill Past Family History Family History Family/Other Anemia Heart disease Brother Asthma Hyperparathyroidism Grandmother (Maternal) Breast cancer Denies family history of Ovarian cancer Colorectal cancer Past Surgical History Surgical History S/P colonoscopy S/P knee surgery S/P tubal ligation Past Anesthesia History No Hx of Anesthesia Complications and No Family Hx of Anesthesia Complications History of PONV No Hx of PONV and No Hx of Motion Sickness Social History Smoking Status: Never smoker Hx Alcohol Use: No Hx Substance Use: No Review of Systems denies fever/cough/ colds/ chest pain/ SOB/ KYA Constitutional: no fever and no chills Respiratory: no cough and no dyspnea denies KYA Cardiovascular: no chest pain and no dyspnea on exertion Physical Exam Vital Signs Last Vital Signs Temp 36.7 C 08/11/19 13:22 Pulse 57 L 08/11/19 13:22 Resp 16 08/11/19 13:22 BP 164/59 H 08/11/19 13:22 Pulse Ox 95 08/11/19 13:22 ENMT Mouth: no TMJ abnormality and no dentition abnormality Thyromental Distance: > or= 3.5 Finger Breadths Mallampati Class: II Neck neck extension not limited Respiratory normal respiratory effort; no respiratory distress Auscultation: lungs clear to auscultation bilaterally Cardiovascular Rate/Rhythm: regular rate and regular rhythm Neurologic moves all extremities Psychiatric Orientation: alert and oriented x 3 Testing Laboratory Results 08/11/19 06:20 08/11/19 06:20 Urine Color Yellow 08/10/19 13:35 Urine Appearance Cloudy (Clear) A 08/10/19 13:35 Urine pH 5.0 (4.5-7.5) 08/10/19 13:35 Ur Specific [place] 1.026 (1.000-1.030) 08/10/19 13:35 Urine Protein 1+ (Negative) H 08/10/19 13:35 Urine Glucose (UA) Negative (Negative) 08/10/19 13:35 Urine Ketones 3+ (Negative) H 08/10/19 13:35 Urine Nitrite Negative (Negative) 08/10/19 13:35 Ur Leukocyte Esterase Negative (Negative) 08/10/19 13:35 Urine WBC (Auto) 5-10 /hpf (0-5) H 08/10/19 13:35 Urine RBC (Auto) >30 /hpf (0-4) H 08/10/19 13:35 U Hyaline Cast (Auto) 1-5 /lpf (0-5) 08/10/19 13:35 U Epithel Cells (Auto) >30 /lpf (0-5) H 06/10/20 13:35 Urine Bacteria (Auto) Negative (Negative) 08/10/19 13:35 08/10/19 13:35 Urine Culture - Preliminary Urine,Clean Catch No growth - Less than 1,000 colonies/mL, Final report to follow.
[2019-08-11] MEDS ORDERED: IOTHALAMATE MEGLUMINE II 17.2% 250 ML VIAL ONE (13:43)
--- NOTE | 2019-08-11 14:59 | Fluoroscopy Report ---
FL KUB CLINICAL HISTORY: RETROGRADE COMPARISON STUDY: CT of the abdomen and pelvis and KUB August 10, 2019. FLUOROSCOPY TIME: 55 seconds. FLUOROSCOPIC IMAGES: 1 FINDINGS: Fluoroscopy was provided for left retrograde exam with ureteral stent insertion. Proximal a spect of the stent projects over the left renal pelvis. Left renal calculi are noted. IMPRESSION: Fluoroscopy provided for left retrograde exam with ureteral stent insertion. ACT 112: Negative or not required by law. Electronically signed by: Mikey Perea M.D. 08/11/2019 2:58 PM
--- NOTE | 2019-08-11 15:02 | Operative Report ---
PG Post Operative Report Pre & Post Diagnosis Operation Date: 08/11/19 11:20 Pre-Op Diagnosis: Left ureteral calculus Post-Op Diagnosis: Left ureteral calculus and bladder tumor I identified the patient and participated in the time-out.: Yes Procedure Operation Date: 08/11/19 11:20 Actual Procedures p Cystoscopy, Left Ureteroscopy, Left Ureteral Stent Placement, and Transurethral Resection of Bladder Tumor(Not Applicable) - Sterling Neves MD Surgeon Dani Neves MD Gravel Inspector none Estimated Blood Loss 0 Findings See Below Specimens Bladder tumor for routine pathology Description of Procedure The patient was identified in the preoperative holding area, appropriate informed consents were reviewed and completed and the patient was transferred to the operative suite. Upon arrival, appropriate antibiotics and anesthesia were administered and the patient was placed in dorsal lithotomy position and prepped and draped in sterile fashion. Of note, the patient was admitted to the hospital with renal colic and a left ureteral calculusshe was counseled to have a cystoscopy left ureteroscopy possible ureteral stent and possible laser lithotripsy. She presents to the operating room now to undergo that procedure. To begin the case I passed a 22 Libyan cystoscope with 30 degree lens. Inspection of the bladder immediately identified a small bladder tumor arising from just lateral to the left ureteral orifice. There were several dystrophic calcifications on the tumor. There were no other tumors around the bladder. The total size of this tumor was around 5 to 10 mm. Before addressing the tumor I decided to proceed with the previously scheduled procedure. I cannulated the left ureteral orifice with a 5 Libyan open-ended catheter and a sensor wire. The wire advanced to the kidney without difficulty. I then entered the ureter with a semirigid ureteroscope but met resistance as I attempted to advance this. I was able to advance it to just below the vessels and no further. I elected to backed the ureteroscope out at this time in place a 6 Libyan by 24 cm double-J ureteral stent to allow dilation of the ureter before I return for definitive treatment of the stone. Of note, I was not able to visualize the stone directly with the scope as I do not believe I reached a high enough point to see it. After placement of the stent and seeing a good curl in the kidney as well as the bladder, I turned my attention of the bladder tumor. Using a resectoscope I resected a single loop worth of tissue from underneath the tumor. The tumor was collected and passed off the table as a specimen. Excellent hemostasis was achieved. The case was concluded. There were no complications. She was extubated and taken to the PACU in stable condition. I attest to the content of the Intraoperative Record and any orders documented therein. Any exceptions are noted below.
[2019-08-11] MEDS ORDERED: PROPOFOL IV EMULSION 10 MG/ML 20 ML VIAL IV ONE (15:17)
[2019-08-11] MEDS ORDERED: ONDANSETRON INJ 2 MG/ML 2 ML VIAL ONE (15:17)
[2019-08-11] MEDS ORDERED: ePHEDrine sulfate 50 MG/ML AMP ONE (15:30)
[2019-08-11] MEDS ORDERED: LIDOCAINE HCL 2% 2 ML VIAL/AMP(20MG/ML) INFIL ONE (15:30)
--- NOTE | 2019-08-11 16:11 | Anesthesiology Progress Note ---
Date of Service August 11, 2019 Anesthesia Post Procedure Vital Signs Vital Signs: Temp Pulse Pulse Pulse Resp BP BP 08/11/19 15:45 36.7 C 87 14 156/77 H 08/11/19 15:35 36.4 C L 81 16 155/73 H 08/11/19 15:30 78 16 149/68 H 08/11/19 15:22 36.1 C L 78 16 152/72 H 08/11/19 13:22 36.7 C 57 L 16 164/59 H 08/11/19 07:13 37.3 C 49 L 15 115/61 08/10/19 23:15 36.7 C 54 L 16 127/70 08/10/19 18:30 36.6 C 81 20 147/61 H 08/10/19 18:20 56 L 12 08/10/19 18:10 62 14 08/10/19 18:00 50 L 14 127/62 08/10/19 17:50 48 L 13 08/10/19 17:40 49 L 14 08/10/19 17:30 59 L 14 08/10/19 17:22 08/10/19 17:20 48 L 13 08/10/19 17:10 50 L 14 08/10/19 17:00 52 L 16 08/10/19 16:50 48 L 12 08/10/19 16:40 64 20 08/10/19 16:30 60 16 129/70 08/10/19 16:20 59 L 15 Pulse Ox 08/11/19 15:45 92 08/11/19 15:35 94 08/11/19 15:30 97 08/11/19 15:22 98 08/11/19 13:22 95 08/11/19 07:13 96 08/10/19 23:15 95 08/10/19 18:30 93 08/10/19 18:20 08/10/19 18:10 08/10/19 18:00 08/10/19 17:50 08/10/19 17:40 08/10/19 17:30 08/10/19 17:22 92 08/10/19 17:20 08/10/19 17:10 08/10/19 17:00 08/10/19 16:50 08/10/19 16:40 08/10/19 16:30 08/10/19 16:20 Pain Intensity Back: Pain Intensity: 8 Left Flank: Pain Intensity: 4 Transfer of Care Handoff Completed per policy Notes Mental Status: alert / awake / arousable and participated in evaluation Patient Amnestic to Procedure: Yes Nausea / Vomiting: adequately controlled Pain: adequately controlled Airway Patency, RR, SpO2: stable & adequate BP & HR: stable & adequate Hydration State: stable & adequate Anesthetic Complications: no major complications apparent and Pt Satisfied with anesthetic care
--- NOTE | 2019-08-11 17:41 | Hospitalist Progress Note ---
Date of Service August 11, 2019 Assessment & Plan (1) Ureteral calculus: CT showing proximal left ureteral calculus with mild hydronephrosis, hydroureter measuring 10x5x4 U/A without nitrates or bacteria, does have epithelial cells and RBCs - culture no growth Continue Cipro and NSS @ 80 mls/hr S/p Cystoscopy, Left Ureteroscopy, Left Ureteral Stent Placement, and Transurethral Resection of Bladder Tumor 08/10 (2) Bladder tumor: Resected as above, path pending (3) Hypertension: continue home losartan (4) Osteoporosis: Takes Prolia q6mo. (5) Hypothyroidism: Continue home levothyroxine (6) DVT prophylaxis: SCDs, hold chemoprophylaxis as patient is post op this afternoon Dispo: will likely be able to go home tomorrow Admission and Anticipated Discharge Date Admission Date: August 10, 2019 Subjective Ms. Carmona was pre op when I saw her this morning. She was having some nausea and flank pain. ROS Constitutional: no chills, aches, sweats or fever Respiratory: no sob,cough, sputum, or wheezing Cardiac: no chest pain, palpitations, edema, orthopnea or lightheadedness GI: no abdominal pain, nausea, vomiting, diarrhea or constipation : no dysuria or hesitancy Extremities: no joint pain or weakness Skin: no rash All other systems reviewed and negative Physical Exam Physical Exam: General: no distress Eyes: normal inspection, PERLL Respiratory: chest non tender, clear to auscultation, normal breath sounds, no respiratory distress, no accessory muscle use Cardiac: regular rate and rhythm, no rub or gallop, no murmur, no edema, no jvd GI/: active bowel sounds, no abd pain or tenderness, soft, non distended Extremities: normal range of motion, normal strength, non tender Neuro/Psych: alert and oriented x 3, normal mood and affect Skin: normal color, dry Results & Data Results & Data ([facility]) Vital Signs (Past 12 Hours) Vital Signs Temp Pulse Pulse Resp BP Pulse Ox 08/11/19 16:43 36.5 C 72 15 132/73 08/11/19 16:14 36.4 C L 66 14 148/70 H 94 08/11/19 15:45 36.7 C 87 14 156/77 H 92 08/11/19 15:35 36.4 C L 81 16 155/73 H 94 08/11/19 15:30 78 16 149/68 H 97 08/11/19 15:22 36.1 C L 78 16 152/72 H 98 08/11/19 13:22 36.7 C 57 L 16 164/59 H 95 08/11/19 07:13 37.3 C 49 L 15 115/61 96 PG Care Time/CCT Total # of Minutes Spent Total Time Spent with Patient: Total time spent is greater than 50% in coordination of care (as documented) at patient's floor/unit and/or counseling patient: Coding Level of Care Code 13928 Subseq Hosp Care Lvl 2 Diagnoses Ureteral calculus N20.1 Bladder tumor D49.4 Hypertension I10 Osteoporosis M81.0 Hypothyroidism E03.9 DVT prophylaxis Z29.9
[2019-08-11] MEDS: CHOLECALCIFEROL 1,000 UNITS 25 MCG TAB PO SCH (20:43)
[2019-08-11] MEDS: DOCUSATE SODIUM 100 MG CAP PO SCH (20:43)
[2019-08-12] MEDS: LEVOTHYROXINE SODIUM 100 MCG TABLET PO SCH (05:42)
[2019-08-12 08:37] LABS: Basophils # (auto) 0.01 K/uL (0-0.2); Basophils % (auto) 0.1 %; Eosinophils # (auto) 0.05 K/uL (0-0.5); Eosinophils % (auto) 0.5 %; Hematocrit (blood only) 36.3 % (37-47); Immature Granulocytes # (auto) 0.01 K/uL (0.00-0.02); Immature Granulocytes % (auto) 0.1 %; Lymphocytes # (auto) 1.81 K/uL (1.2-3.4); Lymphocytes % (auto) 18.3 %; Mean Corpuscular Hemoglobin 27.2 pg (25-34); Mean Corpuscular Hgb Conc 30.3 g/dL (32-36); Mean Corpuscular Volume 89.6 fL (80-100); Mean Platelet Volume 10.1 fL (7.4-10.4); Monocytes # (auto) 0.98 K/uL (0.11-0.59); Monocytes % (auto) 9.9 %; Neutrophils # (auto) 7.04 K/uL (1.4-6.5); Neutrophils % (auto) 71.1 %; Platelet Count 206 K/uL (130-400); RDW Standard Deviation 46.1 fL (36.4-46.3); Red Blood Count 4.05 M/uL (4.2-5.4)
[2019-08-12 09:02] LABS: BUN Creatinine Ratio 21.6 (10-20); Calcium 7.9 mg/dl (8.5-10.1); Creatinine Clr Calc Pharmacy 46.8 ml/min; Est GFR (African American) 87.7; Est GFR (Non-African American) 75.7; Potassium 3.6 mmol/L (3.5-5.1)
[2019-08-12] MEDS: MULTIVITAMIN TAB PO SCH (09:14)
[2019-08-12] MEDS: CIPROFLOXACIN / D5W 400 MG/200 ML BAG IV SCH (09:14)
[2019-08-12] MEDS: CALCIUM CARBONATE 1250MG TAB PO SCH (09:14)
[2019-08-12] MEDS: LOSARTAN POTASSIUM 50 MG TAB PO SCH (09:14)
--- NOTE | 2019-08-12 10:59 | Urology Progress Note ---
Date of Service August 12, 2019 Assessment & Plan (1) Bladder tumor: Incidentally discovered bladder tumor during cystoscopy yesterday Resected completely Await pathology Left ureteral stent insertionI performed a ureteroscopy but could not access the stone and elected to place a stent and then will return for definitive treatment at a later date She is stable for discharge home and we will arrange for outpatient follow-up (2) Ureteral calculus: Subjective Subjectively drastically improved from yesterday She has no nausea, no left flank pain, no dysuria, no hematuria Physical Exam Constitutional: well developed and well nourished Respiratory: no respiratory distress Cardiovascular: Extremities: no pedal edema Gastrointestinal (Abdomen): Inspection/Auscultation: abdomen normal to inspection Results & Data Vital Signs (Past 12 Hours) Vital Signs Temp Pulse Resp BP BP Pulse Ox 08/12/19 10:42 36.8 C 65 16 114/68 154/79 H 96 08/12/19 07:26 36.8 C 65 16 154/79 H 96 08/12/19 03:55 36.7 C 64 16 114/68 95 08/11/19 23:05 36.7 C 72 18 124/68 95 PG Care Time/CCT Total # of Minutes Spent Total Time Spent with Patient: Total time spent is greater than 50% in coordination of care (as documented) at patient's floor/unit and/or counseling patient: Coding Level of Care Code 43520 Subseq Hosp Care Lvl 2 Diagnoses Bladder tumor D49.4 Ureteral calculus N20.1
[2019-08-12] MEDS: SODIUM CHLORIDE 0.9% 1000ML 1,000 ML IV SCH (11:24)
--- NOTE | 2019-08-12 11:29 | Discharge Summary ---
Date of Service August 12, 2019 Admission HPI Per Admitting Provider Ms. Carmona presents today for flank pain on the left starting at 0300 this am. It was relieved with three ibuprofen. She denies any other urinary symptoms such as dysuria or hesitancy. No aches, chills or fevers. CT in the ED showed a large ureteral calculus with mild hydronephrosis. She has no history of ureteral calculus. At the time of my assessment she was feeling much better, some mild nausea but little pain. She denies any vomiting or diarrhea. No sob, cough, chest pain, palpitations or skin changes. Pmhx: htn, osteoporosis, hypothyroid Social: lives with who has dementia, she is a retired [employer], never smoker, no alcohol Primary Care Provider: Desire Perea MD Principal Diagnosis Ureteral stone Discharge Exam Constitutional WD/WN, vitals as above Respiratory normal respiratory effort, lungs clear to auscultation Cardiovascular RRR, no murmur, no edema Gastrointestinal (Abdomen) Inspection/Auscultation: abdomen normal to inspection and normal bowel sounds; abdomen not distended Percussion/Palpation: abdomen soft; abdomen nontender Musculoskeletal no cyanosis or clubbing, extremities motor strength 5/5 Skin no rashes, warm and dry Neurologic moves all extremities and awake Discharge Data Allergies Allergy/AdvReac Type Severity Reaction Status Date / Time egg Allergy Unknown . Verified 08/10/19 16:21 pollen extracts Allergy Verified 08/10/19 16:21 trazodone Allergy Verified 08/10/19 16:21 Consultations 08/10/19 15:28 ED Decision to Admit Stat 08/10/19 18:56 Consult Urology Routine Procedures Performed Operation Date: 08/11/19 11:20 Actual Procedures p Transurethral Resection of Bladder Tumor(Not Applicable) - Sterling Neves MD p Transurethral Resection Bladder Tumor(Not Applicable) - Sterling Neves MD s Cystoscopy, Left Ureteroscopy, Left Ureteral Stent Placement, (Not Applicable) - Sterling Neves MD Ordered Studies 08/10/19 13:52 CT abd pelvis wo con Stat 08/11/19 [place] fluoroscopy <1hr Routine 08/11/19 12:00 FL KUB Routine Hospital Course (1) Ureteral calculus: CT showing proximal left ureteral calculus with mild hydronephrosis, hydroureter measuring 10x5x4 U/A without nitrates or bacteria, does have epithelial cells and RBCs - culture no growth Given cipro inpatient - no need for abx for home as UC was negative S/p Cystoscopy, Left Ureteroscopy, Left Ureteral Stent Placement, and Transurethral Resection of Bladder Tumor 08/10 Stone was unable to be removed during cysto - patient to follow up with Dr. Neves in the office on Thursday. Tylenol and tramodol over the weekend for pain. 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 Neves (3) Hypertension: continue home losartan (4) Osteoporosis: Takes Prolia q6mo. (5) Hypothyroidism: Continue home levothyroxine (6) DVT prophylaxis: Total Time Total Time Spent Total Time Spent (In Minutes): greater than 30 minutes Discharge Plan Discharge Items Patient Disposition: Home - Self-Care Reason For Visit: KIDNEY STONE Discharge Diagnosis: Ureteral stone Condition on Discharge: Good Activity: Per Instructions section Non-emergency contact: Primary Care Provider Call non-emergency contact if: you have any medication questions Follow-up/Referrals: Desire Perea MD [Primary Care Provider] - Diet: Regular Addtl Attending Provider Instructions: You were admitted for a left ureteral stone that was too large for you to pass naturally. A stent was placed during your procedure yesterday. Dr. Neves will see you in his office early next, you should hear from his office on Thursday to set that up. An incidental finding of a bladder tumor was discovered during your cystoscopy. Per Dr. Neves's note, this was resected completely. The pathology showed that this was a non invasive low grade papillary urothelial carcinoma. For pain control you can take acetaminophen 1g (1000 mg) every 8 hours. You can take tramadol which is a low dose narcotic for any breakthrough pain. Pending Studies at Discharge: No Stand-Alone Forms: My [employer], Smoking Cessation Medications and DC Order Prescriptions: New tramadol 50 mg tablet 25 mg PO Q6H PRN (Reason: pain) Qty: 12 RF: 0 Continued calcium carbonate [Calcium 600] 600 mg calcium (1,500 mg) tablet 600 mg PO QAM RF: 0 cholecalciferol (vitamin D3) 2,000 unit tablet 2,000 units PO QPM RF: 0 docusate sodium [Colace] 100 mg capsule 200 mg PO QPM RF: 0 levothyroxine 100 mcg tablet 100 mcg PO QAM RF: 0 Prolia 60 mg/mL syringe 60 mg SQ Q6M RF: 0 loratadine 10 mg tablet 10 mg PO QAM PRN (Reason: allergy symptoms) RF: 0 losartan 50 mg tablet 50 mg PO QAM RF: 0 multivitamin tablet 1 tab PO QAM RF: 0 Discharge Orders: Discharge Order (Routine); Ordered 08/12/19 Ordered By: Scarlet Guerra/Other Patient Handouts: Kidney Stones Prevent Admission Data Admit Date/Time: 08/10/19 16:57 Attending Provider: Juan Carlos Zhang Admit Provider: Juan Carlos Zhang Primary Care Provider: Desire Perea Other Providers: Christos Slater ; Reyes Chambers Other Interventions: Discharge Summary Assessment (RN) Last Done: 08/12/19 10:42 Coding Level of Care Code D/C Day Management >30 mins Diagnoses Ureteral calculus N20.1 Bladder tumor D49.4 Hypertension I10 Osteoporosis M81.0 Hypothyroidism E03.9 DVT prophylaxis Z29.9
== END 2019-08-12 12:27 | disposition home or self-care (01) ==
LOC: ED 12:31 → 3N 16:57 → INTOOBSV 16:57 → 3N 17:22